=== PATIENT | female | born 1975 | race Caucasian/White ===

== ENCOUNTER 2021-02-05 05:24 | Inpatient (IN) | payer BC ==
[2021-02-05] MEDS ORDERED: Dextrose 5%-Lactated Ringers 1,000 ML IV SCH (05:30)
[2021-02-05] MEDS ORDERED: Acetaminophen 500 MG Tab PO ONE (05:30)
[2021-02-05] MEDS: Celecoxib 200 MG Cap PO SCH ×2 (06:06→11:45)
[2021-02-05] MEDS ORDERED: cefOXitin 2 GM Vial ONE (06:29)
[2021-02-05] MEDS ORDERED: Glycopyrrolate 0.2 MG/ML 5 ML MDV ONE (07:19)
[2021-02-05] MEDS ORDERED: Rocuronium 50 MG/5 ML Vial ONE (07:19)
[2021-02-05] MEDS ORDERED: Lactated Ringers 1,000 ML ONE ×2 (07:19→08:34)
[2021-02-05] MEDS ORDERED: Ondansetron 4 MG/2 ML SDV ONE (07:19)
[2021-02-05] MEDS ORDERED: Dexamethasone 4 MG/ML SDV ONE (07:19)
[2021-02-05] MEDS ORDERED: Propofol 200 MG/20 ML SDV ONE (07:19)
[2021-02-05] MEDS ORDERED: Neostigmine Methylsulfate 1 MG/ML 5 ML Syringe ONE (07:19)
[2021-02-05] MEDS ORDERED: Succinylcholine 200 MG/10 ML MDV ONE (07:19)
[2021-02-05] MEDS ORDERED: Midazolam 1 MG/ML 2 ML SDV ONE (07:20)
[2021-02-05] MEDS ORDERED: fentaNYL 250 MCG/5 ML SDV ONE (07:20)
[2021-02-05] MEDS ORDERED: cefOXitin 2 GM in Sodium Chloride 0.9% 50 ML IV ONE (07:30)
[2021-02-05] MEDS ORDERED: Ketamine 500 MG/5 ML MDV IV SCH (07:30)
[2021-02-05] MEDS ORDERED: Magnesium Sulfate 3.5 GM in Sodium Chloride 0.9% 100 ML IV SCH (07:30)
[2021-02-05] MEDS ORDERED: Albuterol/Ipratropium 3.0-0.5 MG/3 ML Neb Soln NEB ONE (07:30)
[2021-02-05] MEDS ORDERED: Ketamine 50 MG in Sodium Chloride 0.9% 49.5 ML IV SCH (07:30)
[2021-02-05] MEDS ORDERED: Scopolamine 1.5 MG Transdermal Patch TOP ONE (07:30)
[2021-02-05] MEDS ORDERED: hydrOXYzine HCL 100 MG/2 ML SDV IM ONE (09:45)
[2021-02-05] MEDS: Ondansetron 4 MG/2 ML SDV IVPUSH PRN ×2 (10:25→21:24)
[2021-02-05] MEDS: oxyCODONE 5 MG Tab PO PRN ×3 (10:32→20:45)
[2021-02-05] MEDS ORDERED: HYDROmorphone 0.5 MG/0.5 ML Syringe IVPUSH PRN (11:00)
[2021-02-05] MEDS ORDERED: diphenhydrAMINE 50 MG/ML SDV IVPUSH PRN (11:00)
[2021-02-05] MEDS ORDERED: Labetalol 20 MG/4 ML Syringe IVPUSH PRN (11:00)
[2021-02-05] MEDS ORDERED: hydrOXYzine HCL 100 MG/2 ML SDV IM PRN (11:00)
[2021-02-05] MEDS ORDERED: Albuterol/Ipratropium 3.0-0.5 MG/3 ML Neb Soln INH PRN (11:00)
[2021-02-05] MEDS ORDERED: Acetaminophen 500 MG Tab PO PRN (11:00)
[2021-02-05] MEDS ORDERED: Calcium Gluconate 10% 1 GM/10 ML SDV IVPUSH PRN (11:00)
[2021-02-05] MEDS ORDERED: Metoclopramide 10 MG/2 ML SDV IVPUSH PRN (11:00)
[2021-02-05] MEDS ORDERED: HYDROmorphone 1 MG/ML Syringe IV PRN (11:00)
[2021-02-05] MEDS: Albuterol/Ipratropium 3.0-0.5 MG/3 ML Neb Soln INH SCH ×3 (11:15→20:46)
[2021-02-05] MEDS: Propranolol 40 MG Tab PO SCH ×2 (13:16→20:46)
[2021-02-05] MEDS: cefOXitin 2 GM in Sodium Chloride 0.9% 50 ML IV SCH ×2 (13:20→19:44)
[2021-02-05] MEDS ORDERED: Pantoprazole 40 MG Vial IVPUSH SCH (14:00)
[2021-02-05] MEDS: Acetaminophen 500 MG Tab PO SCH ×2 (14:29→21:24)
[2021-02-05] MEDS ORDERED: MVI, Adult with Vitamin K 10 ML, Thiamine 200 MG, Zinc/Copper/Manganese/Selenium 1 ML i... IV SCH ×4 (16:00)
--- NOTE | 2021-02-05 16:08 | PCM.EKG ---
#1 Interpretation EKG Date: 02/05/21 Time: 07:05 Rhythm: NSR Rate (Beats/Min): 64 [place]: Normal P-Wave: Present QRS: Normal ST-T: Normal QT: Normal RI/PQ Interval: normal Comparison: NA - No Prior EKG
[2021-02-05] MEDS: Heparin Sodium 5,000 Units/ML Vial SUBCUT SCH (17:36)
[2021-02-05] MEDS: metFORMIN 500 MG Tab PO SCH (17:36)
[2021-02-05] MEDS: Cyclobenzaprine 10 MG Tab PO PRN (17:39)
[2021-02-05] MEDS: Montelukast 10 MG Tab PO SCH (20:45)
[2021-02-05] MEDS: traZODone 50 MG Tab PO SCH (20:45)
[2021-02-05] MEDS: Formoterol/Mometasone 200-5 MCG 8.8 GM Inhaler IH SCH (20:46)
[2021-02-05] MEDS: Dextrose 5%-Lactated Ringers 1,000 ML IV SCH (22:12)
[2021-02-06] MEDS ORDERED: Iopamidol 612 MG/ML 50 ML SDV PO STA (01:01)
[2021-02-06] MEDS: cefOXitin 2 GM in Sodium Chloride 0.9% 50 ML IV SCH ×3 (01:32→13:49)
[2021-02-06] MEDS: Dextrose 5%-Lactated Ringers 1,000 ML IV SCH (04:43)
[2021-02-06] MEDS: Acetaminophen 500 MG Tab PO SCH ×3 (06:05→22:25)
[2021-02-06] MEDS: Heparin Sodium 5,000 Units/ML Vial SUBCUT SCH ×2 (06:06→18:33)
[2021-02-06] MEDS ORDERED: Ondansetron 4 MG Tab.DIS PO PRN (06:43)
[2021-02-06] MEDS ORDERED: Dextrose 5%-Lactated Ringers 1,000 ML IV SCH (06:45)
[2021-02-06] MEDS: Formoterol/Mometasone 200-5 MCG 8.8 GM Inhaler IH SCH ×2 (07:05→20:51)
[2021-02-06] MEDS: Albuterol/Ipratropium 3.0-0.5 MG/3 ML Neb Soln INH SCH ×4 (07:05→20:51)
[2021-02-06] MEDS: traMADol 50 MG Tab PO PRN ×3 (07:44→22:34)
[2021-02-06] MEDS: Levothyroxine 25 MCG Tab PO SCH (07:45)
[2021-02-06] MEDS: metFORMIN 500 MG Tab PO SCH ×2 (08:50→16:13)
[2021-02-06] MEDS: Celecoxib 200 MG Cap PO SCH ×2 (08:50→20:52)
[2021-02-06] MEDS: Estradiol 0.5 MG Tab PO SCH (08:51)
[2021-02-06] MEDS: Loratadine 10 MG Tab.DIS PO SCH (08:51)
[2021-02-06] MEDS: Propranolol 40 MG Tab PO SCH ×3 (08:51→20:51)
[2021-02-06] MEDS: Citalopram 20 MG Tab PO SCH (08:51)
[2021-02-06] MEDS: SCOPOLAMINE PATCH CHECK TOP SCH (09:40)
[2021-02-06] MEDS: hydrOXYzine HCl 25 MG Tab PO PRN (11:21)
[2021-02-06] MEDS: Cyclobenzaprine 10 MG Tab PO PRN (13:44)
[2021-02-06] MEDS ORDERED: Pantoprazole 40 MG Delayed-Release Granules 1 Packet PO SCH (16:00)
[2021-02-06] MEDS ORDERED: MVI, Adult with Vitamin K 10 ML, Thiamine 200 MG, Zinc/Copper/Manganese/Selenium 1 ML i... IV SCH ×4 (16:00)
[2021-02-06] MEDS: Montelukast 10 MG Tab PO SCH (20:52)
[2021-02-06] MEDS: traZODone 50 MG Tab PO SCH (20:52)
[2021-02-07] MEDS: Heparin Sodium 5,000 Units/ML Vial SUBCUT SCH (05:56)
[2021-02-07] MEDS: Acetaminophen 500 MG Tab PO SCH (05:57)
[2021-02-07] MEDS ORDERED: Magnesium Hydroxide 400 MG/5 ML Susp 30 ML Cup PO PRN (06:49)
[2021-02-07] MEDS: Formoterol/Mometasone 200-5 MCG 8.8 GM Inhaler IH SCH (06:59)
[2021-02-07] MEDS: Albuterol/Ipratropium 3.0-0.5 MG/3 ML Neb Soln INH SCH (06:59)
[2021-02-07] MEDS ORDERED: Cyanocobalamin (Vitamin B12) 1,000 MCG/ML SDV IM ONE (09:00)
[2021-02-07] MEDS ORDERED: Magnesium Hydroxide 400 MG/5 ML Susp 30 ML Cup PO ONE (09:00)
[2021-02-07] MEDS: traMADol 50 MG Tab PO PRN (09:49)
[2021-02-07] MEDS: hydrOXYzine HCl 25 MG Tab PO PRN (09:50)
[2021-02-07] MEDS: Propranolol 40 MG Tab PO SCH (09:51)
[2021-02-07] MEDS: Celecoxib 200 MG Cap PO SCH (09:51)
[2021-02-07] MEDS: Levothyroxine 25 MCG Tab PO SCH (09:52)
[2021-02-07] MEDS: Loratadine 10 MG Tab.DIS PO SCH (09:52)
[2021-02-07] MEDS: Estradiol 0.5 MG Tab PO SCH (09:52)
[2021-02-07] MEDS: metFORMIN 500 MG Tab PO SCH (09:52)
[2021-02-07] MEDS: Citalopram 20 MG Tab PO SCH (09:53)
[2021-02-07] MEDS: SCOPOLAMINE PATCH CHECK TOP SCH (09:53)
[2021-02-07] MEDS: Cyclobenzaprine 10 MG Tab PO PRN (10:53)
--- NOTE | 2021-02-08 07:15 | PN ---
DATE OF SERVICE: 02/06/2021 SUBJECTIVE: Yi is postop day #1 following a laparoscopic Ana-en-Y gastric bypass surgery. Her upper GI was normal. Oral intake 650, output 2200. FEDE drain put out 160 mL of a light red drainage. Pain has been well managed. She has been up, ambulating. Has no questions or concerns. OBJECTIVE: GENERAL: Yi is a pleasant 45-year-old female. She is alert and orientated. VITAL SIGNS: TPR 97.4, 76, 18, blood pressure 135/75. HEENT: Negative. NECK: Supple. HEART: Regular rate and rhythm. LUNGS: Clear. ABDOMEN: Dressings dry and intact. FEDE as above. Abdominal binder is on. ASSESSMENT: 1. Laparoscopic Ana-en-Y gastric bypass surgery. 2. Liver biopsy. 3. Repair of paraesophageal diaphragmatic hernia. 4. Excision of mediastinal lipoma. POSTOPERATIVE DIAGNOSES: 1. Morbid obesity. 2. Hepatomegaly. 3. Diaphragmatic hernia. 4. Mediastinal lipoma. 5. Date of procedure: 02/05/2021. Surgeon: Leon Wright MD. PLAN: 1. Decrease IV to 100 mL per hour. 2. Dressing off, may shower. 3. Step 2 gastric bypass diet without cereal. 4. Zofran 4 mg ODT q.4 hours p.r.n. nausea. 5. Atarax 25 mg q.4 hours p.r.n. pain. 6. Communication order: 3 med cups per hour, 1 every 20 minutes, record at bedside. 7. Continue ambulation and use of incentive spirometer. 8. We will evaluate p.r.n. or in a.m. Sylvia Montgomery PA-C /[id number]
--- NOTE | 2021-02-08 09:32 | CR ---
UGI Limited HISTORY: Postbariatric surgery FINDINGS: Patient swallowed water-soluble contrast. Upright views of the abdomen show no evidence of extravasation or obstruction. There is a surgical drain in the left upper quadrant IMPRESSION: Status post bariatric surgery No extravasation or obstruction seen
--- NOTE | 2021-02-08 10:06 | DISCH ---
ADMISSION DIAGNOSES: 1. Morbid obesity, BMI 43.9. 2. Migraine headaches. 3. Asthma. 4. Hypothyroidism. 5. Metabolic syndrome. 6. Hyperinsulinemia. 7. Hirsutism. 8. Depression. 9. Anxiety. 10.Gastric reflux. 11.Sleep apnea. DISCHARGE DIAGNOSES: Laparoscopic Ana-en-Y gastric bypass surgery, liver biopsy, repair of diaphragmatic hernia, and excision of mediastinal lipoma for morbid obesity, hepatomegaly, diaphragmatic hernia, and mediastinal lipoma. Date of procedure: 02/05/2021. Surgeon: Leon Wright MD. HISTORY: Yi Terry is a 45-year-old female with longstanding history of morbid obesity and increasing comorbidities. After preoperative evaluation and discussion of possible risks and possible complications, she wished to proceed with surgical procedure. HOSPITAL COURSE: Yi had her surgery on 02/05/2021. She had no operative complications. On postoperative day #1, her upper GI was normal. She was started on a step 2 gastric bypass diet without cereal. Her activity was good. Her oral intake and output were adequate. Pain was controlled and she was able to be discharged to home on postoperative day #2. PHYSICAL EXAMINATION: GENERAL: Yi Terry is a 45-year-old female. VITAL SIGNS: Height is 5 feet 6 inches, weight is 272 pounds, BMI is 43.9. TPR 95.2, 64, 18, blood pressure 124/78. HEENT: Negative. NECK: Supple. HEART: Regular rate and rhythm. LUNGS: Clear. ABDOMEN: Trocar incisions looked good. Warren intact. 4x4s will be placed over where the FEDE drain will be removed. EXTREMITIES: Without peripheral edema. DISPOSITION: Discharged to home. CONDITION: Stable and improving. FOLLOWUP: Appointment with Sylvia Montgomery PA-C, on 02/16/2021 at 10:15 a.m. HOME MEDICATIONS: 1. Hydroxyzine 25 mg p.o. q.4 hours p.r.n. pain, #30. 2. Zofran ODT 4 mg sublingual q.4 hours p.r.n. nausea, vomiting, #30. 3. Flexeril 10 mg p.o. q.8 hours p.r.n. muscle spasms, #30. 4. Milk of mag 2 doses were sent home with the patient to take 1 when she gets home and 1 tomorrow if no bowel movement. 5. Tylenol 1000 mg p.o. q.8 hours. 6. Celebrex 200 mg p.o. b.i.d., #28. 7. To resume Celexa 40 mg p.o. daily. 8. Estradiol 2 mg p.o. daily. 9. Levothyroxine 75 mcg daily. 10.Claritin RediTabs 10 mg p.o. daily. 11.Metformin 1000 mg p.o. b.i.d. 12.Inderal 20 mg p.o. t.i.d. scheduled. 13.Trazodone 50 mg at bedtime. DIET: Step 2 gastric bypass diet without cereal for 2 weeks until 02/20/2021. Drink 8 to 10 glasses of water a day. Protein goal 65 and water goal 64 ounces. ACTIVITY: No lifting greater than 10 pounds for 2 weeks. OTHER ACTIVITY: Walk 6 times daily inside your home. Driving: Do not drive for 1 week. DISCHARGE INSTRUCTIONS: Shower/bathing: May shower. Wound incision care: Keep operative site clean and dry. Wear abdominal binder for 2 weeks and then as tolerated. Notify provider if any fever, increased pain, swelling, redness, drainage, nausea, or vomiting. Use incentive spirometer 10 times every hour while awake for 1 week. /[id number]
--- NOTE | 2021-02-11 07:34 | OR ---
DATE OF PROCEDURE: 02/05/2021 SURGEON: Leon Wright MD PREOPERATIVE DIAGNOSIS: Morbid obesity. POSTOPERATIVE DIAGNOSES: 1. Morbid obesity. 2. Marked hepatomegaly. 3. Paraesophageal diaphragmatic hernia. 4. Mediastinal lipoma. OPERATIVE PROCEDURES: 1. Laparoscopic Ana-en-Y gastric bypass with long limb gastroenterostomy (20776). 2. Samson-Cut needle liver biopsy (98843). 3. Repair of paraesophageal diaphragmatic hernia (01173). 4. Excision of mediastinal lipoma (03569). ANESTHESIA: General. INDICATIONS FOR PROCEDURE: This is a 45-year-old female, presenting with longstanding morbid obesity and increasingly significant comorbidities. After preoperative evaluation and discussion, she wished to proceed with a gastric bypass procedure. Potential risks of the procedure including bleeding, infection, injury to underlying viscera, problems with bowel obstruction over time, leaks from various GI tract closures were all reviewed along with the remote possibility of cardiopulmonary, septic, or hemorrhagic complications leading to , and the patient wishes to proceed. DETAILS OF PROCEDURE: The patient was taken to the operating room, placed in a supine position. After general endotracheal anesthesia was induced, she was converted to a lithotomy position and the abdomen prepped and draped. 15 cm inferior and 5 cm left of the xiphoid process, a transverse incision was made and the peritoneal cavity entered under direct vision with an Optiview trocar, inflated to 15 mmHg pressure with CO2. Laparoscope was then reinserted. No underlying trocar insertion site injuries were seen. Following this, 5 additional trocars were placed across the upper and mid abdomen, and bilateral transversus abdominis plane blocks were placed. The patient was noted to have marked hepatomegaly and liver biopsies were obtained from left lobe of the liver. Minimal bleeding from the biopsy sites was controlled with electrocautery. The omentum was then divided in the midline up to the level of the transverse colon. This allowed identification of the small bowel to the ligament of Treitz. Small bowel was then traced out 150 cm distal to that point, where it was divided with a PETRA stapler. Small bowel was then traced out additional 150 cm where the [id number] enteroenterostomy was accomplished with an internal firing of the Endo-PETRA 60 mm stapler. Common openings were closed transversely with the same stapler and the angles anastomosed and mesenteric defect approximated with some 0 Ethibond stitch along with 4 mL of fibrin sealant. Divided end of the Ana limb was then from the mesentery for a few centimeters which allowed an antecolic position of the Ana limb up to the level of the gastroesophageal junction without tension. The liver was then retracted anteriorly. The patient was noted to have a moderate-sized paraesophageal hernia with prolapse of some perigastric fat and omentum in a plane anterior to the course of the esophagus. This was reduced and the peritoneum overlying incised and reflected downward. During the course of the dissection, mediastinal lipoma was encountered, and to facilitate a more adequate crural repair, this was excised. The crura was then approximated with 0 Ethibond sutures reinforced with PTFE pledgets. The gastrointestinal catheter was then inflated 15 mL and pulled up snugly against the EG junction. Gastric wall over the apex of the balloon was then marked with electrocautery and balloon catheter deflated and pulled up from the esophagus. The lesser omental tissue adjacent to the gastric cardia was then from the gastric cardia and pouch formation was initiated with transverse firing of the PETRA stapler at the level of the cauterized carisa at the gastric cardia and then completed with additional firings of PETRA stapler up to and through the angle of His. Upon completion of the pouch, both staple lines were noted to be intact. The anvil of a 25 mm EEA stapler was attached to [place] sump type tube. The latter was brought down through the mouth and taken out through a small opening in the gastric pouch, allowing the anvil likewise to be pulled down to within the gastric pouch. The divided end of the Ana limb was then opened and the main body of EEA stapler passed several centimeters into the lumen of the small bowel, brought up the anvil, united with it, thus creating the gastrojejunostomy. Upon removal of the stapler, double donuts of mucosa were noted within it. The small bowel was closed off with a vascular staple line. The gastrojejunostomy was then reinforced with some 3-0 Vicryl seromuscular stitch along with . Leon Wright MD /[id number]
== END 2021-02-07 10:55 | disposition home or self-care (01) | DRG 403 ==
LOC: JP.SDS 05:24 → JP.SDSSCHI 05:24 → JP.MS 09:00 → UNDOADMIN 09:00 → EDSTATUS 09:45
PROVIDERS: ADMIT Surgery; ATTEND Surgery
PROC: 0D164ZA Bypass Stomach to Jejunum, Percutaneous Endoscopic Approach (ICD-10-PCS; principal; 2021-02-05)
PROC: 0FB24ZX Excision of Left Lobe Liver, Percutaneous Endoscopic Approach, Diagnostic (ICD-10-PCS; 2021-02-05)
PROC: 0BQT4ZZ Repair Diaphragm, Percutaneous Endoscopic Approach (ICD-10-PCS; 2021-02-05)
PROC: 0JB63ZZ Excision of Chest Subcutaneous Tissue and Fascia, Percutaneous Approach (ICD-10-PCS; 2021-02-05)
DX: E66.01 Morbid (severe) obesity due to excess calories (principal); Z68.41 Body mass index [BMI] 40.0-44.9, adult; G43.909 Migraine, unspecified, not intractable, without status migrainosus; J45.909 Unspecified asthma, uncomplicated; E03.9 Hypothyroidism, unspecified; E16.1 Other hypoglycemia; L68.0 Hirsutism; F32.9 Major depressive disorder, single episode, unspecified; F41.9 Anxiety disorder, unspecified; K21.9 Gastro-esophageal reflux disease without esophagitis; G47.30 Sleep apnea, unspecified
CPT/HCPCS: 36415; 74240; 74240-26; 82947; 86850; 86900; 86901; 88307; 88313; 93005; 94640; A9270-GY; C9113; J0171; J0330; J0694; J1100; J1170; J1644; J2250; J2405; J2704; J2710; J2795; J3010; J3410; J3411; J3420; J3475; J3490; J7050; J7120; J7121; J7620-GY; Q9967